=== PATIENT | male | born 1995 | race Caucasian/White ===

== ENCOUNTER 2021-11-27 13:31 | Emergency (ER) | payer SELFPAY ==
--- NOTE | 2021-11-27 13:38 | ED.UPPEXIN ---
HPI - Extremity Injury (Upper) General Chief Complaint: Extremity Injury, Upper Stated Complaint: right hand middle finger injury Source: patient and RN notes reviewed Mode of arrival: ambulatory Limitations: no limitations History of Present Illness complaint: injury to: right Onset (ago): day(s) (5) Other Extremity Injury: Right: fingers (middle) Other injuries: none Handedness: right Place: home Severity scale (1-10): 8 Relieving factors: none Exacerbating factors: movement of extremity Context: other ( No known injury) Associated symptoms: denies other symptoms Treatments prior to arrival: NSAIDS Related Data Allergies Allergy/AdvReac Type Severity Reaction Status Date / Time No Known Allergies Allergy Verified 11/27/21 13:49 Review of Systems Review of Systems: All systems reviewed & are unremarkable except as noted in HPI and below PMFSH Past Medical History Medical History (Updated 11/27/21 @ 14:12 by Wilmer Fatima MD) No active medical problems Surgical History Surgical History (Updated 11/27/21 @ 13:45 by Wilmer Fatima MD) H/O knee surgery Social History Social History (Updated 11/27/21 @ 13:46 by Wilmer Fatima MD) Smoking packs per day: 0.5 Smoking cigarettes per day: 10.0 Smoking status: Current every day smoker Tobacco type: cigarettes Exam Const: General: healthy appearing, no acute distress and alert Nutritional Appearance: well nourished Orientation/consciousness: patient oriented x3 HENMT: Head: normal to inspection Ears: external ears normal Eyes: Conjunctivae: conjunctivae normal Pupils: Equal, round and reactive pupils present EOM: EOMs intact bilaterally Neck: Neck: normal visual inspection Resp: Effort & Inspection: normal respiratory effort Auscultation: clear to auscultation bilaterally Cardio: Rate: regular rate Rhythm: regular rhythm GI: GI Palp: Yes Soft to palpation and No Tenderness to palpation present (GI) Auscultation: normal bowel sounds Back/Spine/Pelvis: Cervical Spine: cervical ROM normal Thoracic/Lumbar Spine: thoraco-lumbar ROM normal Skin: General skin exam: normal color, erythema and fluctuance (right middle finger pad) Rashes: no rashes Wounds: no wounds Neuro: General: patient oriented x3, moves all extremities, no focal motor deficits and CN's II-XI intact bilaterally Speech: normal speech Gait exam (Neuro): Normal gait present Extrem: General: normal to inspection and no clubbing, cyanosis or edema Course Vital Signs Vital signs: Vital Signs Temperature 36.4 C L 11/27/21 13:40 Pulse Rate 104 H 11/27/21 13:40 Respiratory Rate 16 11/27/21 13:40 Blood Pressure 146/84 H 11/27/21 13:40 Pulse Oximetry 98 11/27/21 13:40 Temperature 36.4 C L 11/27/21 13:40 Pulse Rate 104 H 11/27/21 13:40 Respiratory Rate 16 11/27/21 13:40 Blood Pressure 146/84 H 11/27/21 13:40 Pulse Oximetry 98 11/27/21 13:40 Procedures Abscess I/D hand: Date of Incision: 11/27/21 Side (if applicable): right Local Anesthetic: lidocaine 1% Amount of anesthesia used (mL): 5 Technique: incised with #11 blade Irrigation: No Packing used?: none I&D Results: Pus and Blood Complications: other (None) Discharge Plan Discharge Clinical Impression: Felon of finger of right hand Patient Disposition: Home, Self-Care Condition: Stable Instructions: Antibiotic Form, Abscess Incision and Drainage (DC) Additional Instructions: use Tylenol and or Motrin as needed for pain. Prescriptions: New cephalexin 500 mg capsule 500 mg PO Q8H 7 Days Qty: 21 RF: 0 Follow-up/Referrals: UNKNOWN,DOCTOR [Primary Care Provider] - Time of Disposition: 14:11
[2021-11-27 13:40] VITALS: BP 146/84; PULSE 104; RESP 16; TEMP 36.4; O2SAT 98
[2021-11-27] MEDS: LIDOCAINE HCL 1% LOCAL INJ 20 ML VIAL INFILTRATE (14:13)
== END 2021-11-27 14:20 | disposition home or self-care (01) ==
PROVIDERS: Emergency Provider Emergency Medicine
DX: L03.011 Cellulitis of right finger (principal)
CPT/HCPCS: 26010; 99283

== ENCOUNTER 2022-07-22 12:01 | Emergency (ER) | payer SELFPAY ==
[2022-07-22 12:09] VITALS: BP 114/86; PULSE 112; RESP 18; TEMP 37.1; O2SAT 98
[2022-07-22 13:12] LABS: Influenza A QL RT-PCR Negative (Negative); Influenza B QL RT-PCR Negative (Negative); SARS-CoV-2 RNA PCR Positive
[2022-07-22] MEDS: ACETAMINOPHEN 500 MG TABLET 1000 MG PO (13:15)
--- NOTE | 2022-07-22 13:18 | ED.FEVER ---
HPI - Fever General Chief Complaint: Fever Stated Complaint: body aches X3 days, fever, sore throat Time Seen by Provider: 07/22/22 12:16 Source: patient and RN notes reviewed Mode of arrival: ambulatory Limitations: no limitations History of Present Illness HPI Narrative: This is a 27 year old male who presents for evaluation of URI symptoms. He reports sore throat, body aches , cough and fever for 2-3 days. He reports sore throat is improving and he does have some pain with swallowing. He denies nausea, vomiting but reports diarrhea. He has cough with clear phlegm. He also has sinus congestion and drainage. He states his niece was having symptoms of croup 2 days ago. He took ibuprofen and Tylenol yesterday for his fever and body aches. HE has not taken any medication today. He reports fever of 101 F today . Related Data Allergies Allergy/AdvReac Type Severity Reaction Status Date / Time No Known Allergies Allergy Verified 11/27/21 13:49 Review of Systems Review of Systems: All systems reviewed & are unremarkable except as noted in HPI and below Constitutional: Constitutional: Reports chills and Reports fever(s) ENT: Reports nasal congestion and Reports sore throat Cardiovascular: Cardiovascular: Denies chest pain Respiratory: Respiratory: Denies chest congestion, Reports cough and Denies dyspnea Gastrointestinal: Gastrointestinal: Denies abdominal pain, Reports diarrhea, Denies nausea and Denies vomiting Musculoskeletal: Musculoskeletal: Reports myalgias Neurologic: Reports headache(s) PMFSH Past Medical History Medical History No active medical problems Surgical History Surgical History H/O knee surgery Social History Social History Smoking packs per day: 0.5 Smoking cigarettes per day: 10.0 Smoking status: Current every day smoker Tobacco type: cigarettes Exam Narrative: GENERAL: Well-appearing, well-nourished, and in no acute distress. HEAD: Normocephalic, atraumatic EYES: PERRLA and EOMI, conjunctiva clear without discharge EARS: TM's clear bilaterally without erythema or dullness NOSE: Nares clear, no rhinorrhea or epistaxis THROAT:Mucous membranes moist, Oropharynx normal without erythema, exudate, peritonsillar swelling or fluctuance NECK: Supple, without lymphadenopathy or mass RESPIRATORY: No respiratory distress, Airway patent, Respirations non-labored, Clear to auscultation without rales, rhonchi or wheeze HEART: Regular rate and rhythm. No murmur heard. Normal peripheral pulses. ABDOMEN: Soft, nontender, nondistended, normal active bowel sounds. No masses. No rebound or guarding, No organomegaly. EXTREMITIES: No edema, normal strength with full range of motion. SKIN: Warm, dry, normal color without rash NEURO: Alert and oriented x3. CN 2-12 grossly intact. No focal deficits. PSYCH: Normal mood and affect. Course Reevaluation(s) Reevaluation #1: I discussed with patient that he has COVID. Denies any questions or concerns. Date: 07/22/22 Time: 13:29 Vital Signs Vital signs: Vital Signs Temperature 98.8 F 07/22/22 12:09 Pulse Rate 112 H 07/22/22 12:09 Respiratory Rate 18 07/22/22 12:09 Blood Pressure 114/86 07/22/22 12:09 Pulse Oximetry 98 07/22/22 12:09 Temperature 98.8 F 07/22/22 12:09 Pulse Rate 112 H 07/22/22 12:09 Respiratory Rate 18 07/22/22 12:09 Blood Pressure 114/86 07/22/22 12:09 Pulse Oximetry 98 07/22/22 12:09 MDM - Fever Lab Data Labs: Lab Results 07/22/22 Range/Units 12:28 Influenza A (RT-PCR) Negative (Negative) Influenza B (RT-PCR) Negative (Negative) SARS-CoV-2 RNA (RT-PCR) Positive A Strep Screen Presumptive Negative *(Reference Range: Negative)* Discha
== END 2022-07-22 14:01 | disposition home or self-care (01) ==
PROVIDERS: Physician Assistant; Emergency Provider General Practice
DX: U07.1 COVID-19 (principal); F17.210 Nicotine dependence, cigarettes, uncomplicated
CPT/HCPCS: 87081; 87147; 87502; 87880; 99283; A9270; C9803; U0003; U0005

== ENCOUNTER 2025-09-26 09:57 | Day surgery (SDC) | payer OTHER, SELFPAY ==
[2025-09-17 14:44] VITALS: BMI 324.5
--- OUTSIDE RECORDS SUMMARY | 2025-09-26 10:00 | XMS_ITS | Clinical Summary ---
Author Organization [facility] Address [address] [place] [address] Care Team Providers Care Information Clerk Name Role Phone No, Physician Primary Care Provider [phone] Allergies No known active allergies Medications cetirizine (ZyrTEC) 10 mg tabletIndication s:Urticaria Take 1 tablet (10 mg total) by mouth daily 30 tablet 1 03/02/2024 Active famotidine (PEPCID) 20 mg tabletIndication s:Urticaria Take 1 tablet (20 mg total) by mouth 2 (two) times a day 60 tablet 1 03/02/2024 Active Active Problems No known active problems Social History Tobacco Use Types Packs/Day Years Used Date Smoking Tobacco: Every Day Cigarettes 0.8 11.9 Started: 2013 Personal Safety Answer Date Recorded Getting School Help Needed Not on file 12/15 Sex and Gender Information Value Date Recorded Sex Assigned at Not on file Legal Sex Male 2:47 PM CDT Gender Identity Not on file Sexual Orientation Not on file Last Filed Vital Signs Vital Sign Reading Time Taken Comments Blood Pressure 136/79 03/02/2024 11:21 AM CDT Pulse 86 03/02/2024 11:21 AM CDT Temperature 36.8 C (98.3 F) 03/02/2024 11:21 AM CDT Respiratory Rate 18 03/02/2024 11:21 AM CDT Oxygen Saturation 98% 03/02/2024 11:21 AM CDT Inhaled Oxygen Concentration - - Weight 77 kg (169 lb 12.8 oz) 03/02/2024 11:21 A M CDT Height 175.3 cm (5' 9) 03/02/2024 11:21 AM CDT Body Mass Index 25.08 03/02/2024 11:21 AM CDT Plan of Treatment Health Maintenance Due Date Last Done Comments Depression Screening 1995 Hepatitis C Screening 1995 Varicella Vaccines (1 of 2 - 13+ 2-dose series) 2010 Regular Well Visit/Exam 18-64 2015 Pneumococcal vaccine <65 (2 of 2 - PCV) 08/14/2020 08/14/2019 HPV Vaccines (1 - 3-dose SCD M series) 2024 Influenza Vaccine (#1) 2025 9, 07/30/2018, 08/16/2017, Additional history exists DTaP/Tdap/Td Vaccine (6 - Td or Tdap) 07/18/2033 07/18/2023, 09/23/2015, 07/28/1998, Additional history exists Hepatitis B Screening Completed 12/19/2016 , 12/19/2016, 10/28/2015, Additional history exists Insurance [employer] Care Teams Information Clerk Relationship Specialty Start Date End Date No, Physician PCP - General 04/18/22
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
[2025-09-26 10:10] VITALS: BP 121/78; PULSE 88; RESP 16; TEMP 37.6; O2SAT 99
[2025-09-26] MEDS: SIMETHICONE ORAL SUSPENSION 20 MG/0.3 ML 30 ML BOTTLE 1.8 ML PO (10:14)
[2025-09-26] MEDS: LACTATED RINGERS 1,000 ML 150 ML IV CONT (10:19)
--- NOTE | 2025-09-26 11:56 | PM.IMHP2 ---
H&P: HPI History of Present Illness Date/Time: 09/26/25 11:56 Chief Complaint: GERD Narrative: this patient suffer from recurrent heartburn for several years, occasionally associated with dysphagia. He has never had endoscopy and is scheduled for it today. Review of Systems Review of Systems: All systems reviewed & are unremarkable except as noted in HPI and below PMFSH Past Medical History Medical History (Updated 09/17/25 @ 13:05 by Stella Daniel APRN) Encounter to establish care No active medical problems Surgical History Surgical History H/O knee surgery Social History Social History (Updated 09/17/25 @ 10:58 by Leticia Roque) Smoking packs per day: 1.5 Smoking cigarettes per day: 30.0 Years smoked: 11 Smoking pack-years: 16.50 Smoking status: Former smoker Tobacco type: cigarettes Smoking end date: 09/11/25 Alcohol intake: former Drinks per week: 0 Substance use: current Substance use type: marijuana Other substance usage details: smokes marijuana daily Lack of Transportation: No Lack of Food: Never True Current Housing: I Have Housing Concerned About Future Housing: No Difficulty Paying Gas/Electric Bills: No Difficulty Paying for Meds: No Currently Unemployed: No Education: High School Diploma/GED Living arrangements: with family Occupation/Education: occupation Gender identity (if verbalized by the patient): Male Spiritual care concerns: No Agree to blood products: Yes Meds Home Medications and Allergies Home Medications ?Medication ?Instructions ?Recorded ?Confirmed ?Type hydroxyzine HCl 25 mg tablet 75 mg (3 x 25 mg) PO BID PRN 07/27/25 09/26/25 Rx anxiety #540 tabs dextroamphetamine-amphetamine 10 10 mg PO QACLUNCH #30 tabs 09/17/25 09/26/25 Rx mg tablet dextroamphetamine-amphetamine ER 20 mg PO DAILY #30 caps 09/17/25 09/26/25 Rx 20 mg 24hr capsule,extend release (Adderall XR) fluoxetine 10 mg capsule 10 mg PO DAILY #30 caps 09/17/25 09/26/25 Rx omeprazole magnesium 20 mg 40 mg PO DAILY 09/17/25 09/26/25 History capsule,delayed release (Acid Patient Care Representative (omeprazole)) Allergies Allergy/AdvReac Type Severity Reaction Status Date / Time No Known Allergies Allergy Verified 09/26/25 10:09 Vital Signs Vital Signs - 24 hr 09/26/25 10:10 Temperature 99.6 F Pulse Rate 88 Respiratory Rate 16 Blood Pressure 121/78 Pulse Oximetry 99 Oxygen Delivery Room Air Exam Const: General: cooperative and healthy appearing Resp: Effort & Inspection: normal respiratory effort and able to speak in complete sentences Auscultation: clear to auscultation bilaterally Cardio: Rate: regular rate Rhythm: regular rhythm GI: Inspection: normal to inspection GI Palp: No No hepatosplenomegaly present Auscultation: normal bowel sounds Rectal Exam: deferred Skin: General skin exam: normal color Psych: Appearance: grossly normal Mental Status: mental status grossly normal Assessment and Plan Assessment and plan (1) GERD (gastroesophageal reflux disease): Qualifiers: Esophagitis presence: without esophagitis Qualified Code(s): K21.9 - Gastro-esophageal reflux disease without esophagitis Code(s): K21.9 - Gastro-esophageal reflux disease without esophagitis Status: Acute Assessment and Plan: The patient is deemed a good candidate for the procedure. Consent signed. Will proceed. Prior Studies I have reviewed the following patient records and this information was taken into consideration when formulating the assessment and plan.: previous labs, previous ER visits, previous hospitalizations and previous clinic visits
--- NOTE | 2025-09-26 11:57 | P.PNAN_ITS ---
Anes - Initial Pre Proc Eval Procedure: Operation Date: 09/26/25 11:45 Proposed Procedures p Esophagogastroduodenoscopy - Star Pack MD Date/Time: 09/26/25 11:57 Surgeon: Star Pack MD Pre Op Diagnosis: Gastro-esophageal reflux disease without esophagit Patient Data Age: 30 Gender: M Height: 1.73 m Weight: 70.4 kg Last Vital Signs Temp 37.6 C 09/26/25 10:10 Pulse 88 09/26/25 10:10 Resp 16 09/26/25 10:10 BP 121/78 09/26/25 10:10 Pulse Ox 99 09/26/25 10:10 O2 Del Method Room Air 09/26/25 10:10 Allergies Allergy/AdvReac Type Severity Reaction Status Date / Time No Known Allergies Allergy Verified 09/26/25 10:09 Home Medications ?Medication ?Instructions ?Recorded ?Confirmed ?Type hydroxyzine HCl 25 mg tablet 75 mg (3 x 25 mg) PO BID PRN 07/27/25 09/26/25 Rx anxiety #540 tabs dextroamphetamine-amphetamine 10 10 mg PO QACLUNCH #30 tabs 09/17/25 09/26/25 Rx mg tablet dextroamphetamine-amphetamine ER 20 mg PO DAILY #30 ca ps 09/17/25 09/26/25 Rx 20 mg 24hr capsule,extend release (Adderall XR) fluoxetine 10 mg capsule 10 mg PO DAILY #30 caps 02/0609/26/25 Rx omeprazole magnesium 20 mg 40 mg PO DAILY 09/17/25 History capsule,delayed release (Acid Instrument And Controls Technician (omeprazole)) Patient hx anesthesia problems: none Family hx anesthesia problems: none Results Review: All pre-operative results and documents have been reviewed as part of the pre- operative evaluation. [facility] Past Medical History Medical History (Updated 09/17/25 @ 13:05 by Stella Daniel APRN) Encounter to establish care No active medical problems Surgical History Surgical History H/O knee surgery Social History Social History (Updated 09/17/25 @ 10:58 by Leticia Roque) Smoking packs per day: 1.5 Smoking cigarettes per day: 30.0 Years smoked: 11 Smoking pack-years: 16.50 Smoking status: Former smoker Tobacco type: cigarettes Smoking end date: 09/11/25 Alcohol intake: former Drinks per week: 0 Substance use: current Substance use type: marijuana Other substance usage details: smokes marijuana daily Lack of Transportation: No Lack of Food: Never True Current Housing: I Have Housing Concerned About Future Housing: No Difficulty Paying Gas/Electric Bills: No Difficulty Paying for Meds: No Currently Unemployed: No Education: High School Diploma/GED Living arrangements: with family Occupation/Education: occupation Gender identity (if verbalized by the patient): Male Spiritual care concerns: No Agree to blood products: Yes Anes - Eval Final PreProcedure Day of Procedure 09/26/25 11:57 Heart: regular rate and rhythm Lungs: clear to auscultation Airway: Mallampati scale class II Neurological: alert and oriented Last oral intake: >/= 8 hours ASA classification: I Emergent: no Anesthetic plan: proceed Anesthesia type and monitoring: monitored anesthesia care Results Review: All pre-operative results and documents have been reviewed as part of the pre- operative evaluation. Informed Consent: The patient's anesthetic plan and its attendant risks and benefits were discussed with the patient/family/POA. Questions were solicited and answers provided to the satisfaction of the patient/family/POA.
[2025-09-26 12:15] VITALS: BP 108/69; PULSE 74; RESP 18; O2SAT 99
--- NOTE | 2025-09-26 12:19 | WPDANESPN ---
Anes - Prog Note Post-Op Date/Time: 09/26/25 12:19 Cardiovascular status: normal Respiratory status: normal Airway patency: baseline Mental status: baseline Post-Op hydration status: normal Vital Signs: Last Vital Signs Temp 37.6 C 09/26/25 10:10 Pulse 88 09/26/25 10:10 Resp 16 09/26/25 10:10 BP 121/78 09/26/25 10:10 Pulse Ox 99 09/26/25 10:10 O2 Del Method Room Air 09/26/25 10:10 Pain Score (VAS): 0 I/O: Intake & Output 09/25/25 09/26/25 09/26/25 23:59 07:59 15:59 Intake Total 0 Balance 0 Patient Feedback: Patient satisfied with anesthetic care.
[2025-09-26 12:25] VITALS: BP 110/69; PULSE 76; RESP 19; O2SAT 100
[2025-09-26 12:35] VITALS: BP 130/65; PULSE 77; RESP 16; O2SAT 100
== END 2025-09-26 12:42 | disposition home or self-care (01) ==
PROVIDERS: PCP Nurse Practitioner Family; Referring Provider Nurse Practitioner Family; Visit Provider Internal Medicine Gastroenterology
PROC: 0DJ08ZZ Inspection of Upper Intestinal Tract, Via Natural or Artificial Opening Endoscopic (ICD-10-PCS; CPT 43239; principal; 2025-09-26 11:45)
DX: K21.00 Gastro-esophageal reflux disease with esophagitis, without bleeding (principal)
CPT/HCPCS: 43239

== ENCOUNTER 2025-09-26 11:47 | Outpatient (NON) | payer OTHER, SELFPAY ==
--- NOTE | 2025-09-26 | S_PTH ---
PATIENT: Ronen Barreto LOC: [facility] U#:[id number] AGE/SX: 30/M ROOM: RE09/26/[address]: Star Pack MD : 1995 BED: DIS: 09/26/2025 SPEC #: [id number] RECD: 09/28/25 13:56 STATUS: BLANCA REChasidy #: [id number] YVETTE: 09/26/25 00:[address]: Star Pack DEPT: [facility] Surgical RECD BY: Bonnie Hermosillo ENTERED: 09/28/25 13:57 SP TYPE: Surgical OTHR DR: Stella Daniel APRN Tissues: A - Gastric Biopsy B - Gastric Biopsy C - Esophageal Biopsy Procedures: Hematoxylin and Eosin Stain Gross and Microscopic Level 4
== END 2025-09-26 11:48 | disposition home or self-care (01) ==
LOC: ANHLAB 09-28 11:47
PROVIDERS: PCP Nurse Practitioner Family; Visit Provider Internal Medicine Gastroenterology
DX: K21.9 Gastro-esophageal reflux disease without esophagitis (principal)
CPT/HCPCS: 88305